=== PATIENT | female | born 1970 | race Caucasian/White ===

== ENCOUNTER 2017-03-08 07:29 | Emergency (ER) | payer BC, OTHER ==
[2017-03-08 07:43] VITALS: BP 113/75
--- NOTE | 2017-03-08 07:57 | UC ---
Respiratory Complaint HPI - HPI Summary HPI Summary: 3 DAYS OF FRONTAL SINUS PRESSURE AND HEADACHE. PT DOES GET MIGRAINE-LIKE MOREIRA BUT SHE STATES THIS FEELS DIFFERENT. IBUPROFEN NOT HELPING. NO NAUSEA, VISUAL DISTURBANCES, COUGH, CONGESTION OR ST. WORSE WHEN SHE BENDS OVER. - History of Current Complaint Chief Complaint: UCRespiratory Stated Complaint: SINUS Time Seen by Provider: 03/08/17 07:50 Hx Obtained From: Patient Hx Last Menstrual Period: 02/07/17 Onset/Duration: Gradual Onset, Lasting Days, Still Present Timing: Constant Severity Initially: Moderate Severity Currently: Moderate Pain Intensity: 7 Pain Scale Used: 0-10 Numeric Aggravating Factors: Nothing Alleviating Factors: Nothing Associated Signs And Symptoms: Positive: Negative - Allergies/Home Medications Allergies/Adverse Reactions: Allergies Allergy/AdvReac Type Severity Reaction Status Date / Time No Known Allergies Allergy Verified 03/08/17 07:35 PMH/Surg Hx/FS Hx/Imm Hx Previously Healthy: Yes - Surgical History Surgical History: None - Family History Known Family History: Negative: Hypertension Family History: NO CEREBRAL ANEURYSM - Social History Alcohol Use: Occasionally Substance Use Type: None Smoking Status (MU): Never Smoked Tobacco Review of Systems Constitutional: Negative ENT: Negative Respiratory: Negative Cardiovascular: Negative Gastrointestinal: Negative Neurological: Headache All Other Systems Reviewed And Are Negative: Yes Physical Exam Triage Information Reviewed: Yes Appearance: Well-Appearing, No Pain Distress, Well-Nourished Vital Signs: Initial Vital Signs Temp 98 F 03/08/17 07:31 Pulse 66 03/08/17 07:31 Resp 16 03/08/17 07:31 BP 113/75 03/08/17 07:31 Pulse Ox 98 03/08/17 07:31 Vital Signs Reviewed: Yes Eyes: Positive: Conjunctiva Clear ENT: Positive: Hearing grossly normal, Pharynx normal, TMs normal Neck: Positive: Supple, Nontender, No Lymphadenopathy Respiratory Exam: Normal Cardiovascular Exam: Normal Abdomen Description: Positive: Soft Musculoskeletal: Positive: No Edema Neurological: Positive: Alert Psychological: Positive: Age Appropriate Behavior Skin: Negative: rashes UC Diagnostic Evaluation - Laboratory O2 Sat by Pulse Oximetry: 98 Respiratory Course/Dx - Differential Dx/Diagnosis Provider Diagnoses: TENSION HEADACHE Discharge - Discharge Plan Condition: Stable Disposition: HOME Prescriptions: Naproxen [Naproxen EC] 500 mg PO BID PRN #30 tab PRN Reason: Pain Patient Education Materials: Tension Headache (ED), General Headache (ED) Referrals: Carlos Morejon MD [Primary Care Provider] - If Needed Additional Instructions: NO SIGN OF BACTERIAL SINUSITIS ON EXAM TODAY. STAY WELL HYDRATED AND RESTED AND SEEK FOLLOW-UP IF NEEDED. GO TO THE ER WITHOUT FAIL IF YOU DEVELOP WORSENING PAIN, NAUSEA, VISUAL DISTURBANCES OR ANY OTHER CONCERNING SYMPTOMS.
== END 2017-03-08 08:07 | disposition home or self-care (01) ==
LOC: UCCORT 07:29
DX: G44.209 Tension-type headache, unspecified, not intractable (principal)
CPT/HCPCS: 99212; G0463